=== PATIENT | female | born 1945 | race Caucasian/White ===

== ENCOUNTER 2021-08-15 10:44 | Emergency (ER) | payer MEDICARE, OTHER ==
[2021-08-15 11:00] VITALS: BP 147/61
--- NOTE | 2021-08-15 11:09 | ED Physician Documentation ---
History of Present Illness - Stated complaint Stated Complaint: C+/SORE THROAT - Chief complaint Chief Complaint: General - History obtained from History obtained from: Patient - History of Present Illness Timing: How many days ago (4) - Additonal information Additional information: 76yoF with hx HLD presents with positive COVID19 test and sore throat. Patient s jamee her PCP referred her to the ED for Paxlovid rx. PatientStates she began to develop a sore throat 4 days ago. Denies fevers, shortness of breath, chest pain, body aches, any other complaints at this time. Review of Systems Ten Systems: 10 systems reviewed and negative Nose: denies: Rhinorrhea / runny nose, Congestion Throat: reports: Sore throat. denies: Dental pain / toothache, Oral lesions / sores, Swollen tonsils, Swallowed foreign body Respiratory: denies: Dyspnea, Wheezing PD PAST MEDICAL HISTORY - Past Medical History Cardiovascular: High cholesterol - Present Medications Home Medications: Ambulatory Orders Medication Instructions Recorded Confirmed Lovastatin 20 mg PO DAILY 08/15/21 08/15/21 Nirmatrelvir/Ritonavir [Paxlovid] 1 kit PO BID 5 Days #1 kit 08/15/21 - Allergies Allergies/Adverse Reactions: Allergies Allergy/AdvReac Type Severity Reaction Status Date / Time No Known Drug Allergies Allergy Verified 08/15/21 10:53 - Social History Does the pt smoke?: No Smoking Status: Never smoker PD ED PE NORMAL - General General: Alert and oriented X 3, No acute distress - HEENT HEENT: Atraumatic, PERRL, EOMI, Ears normal - Neck Neck: Supple, no meningeal sign, No bony TTP, No JVD, No bruit, C-Spine cleared by NEXUS criteria - Cardiac Cardiac: RRR, No murmur, No gallop, No rub, Strong equal pulses - Respiratory Respiratory: No respiratory distress, Clear bilaterally - Abdomen Abdomen: Soft, Non tender, Non distended - Back Back: No CVA TTP, No spinal TTP - Derm Derm: Normal color, Warm and dry - Extremities Extremities: No deformity, No edema - Neuro Neuro: Alert and oriented X 3, supervisor line department 2-12 intact, No motor deficit, No sensory deficit - Psych Psych: Normal mood, Normal affect Results - Vitals Vitals: Vital Signs - 24 hr 08/15/21 10:50 Temperature 36.9 C Heart Rate 74 Respiratory 18 Rate Blood Pressure 147/61 H O2 Saturation 95 Oxygen O2 Source Room air PD MEDICAL DECISION MAKING - ED course ED course: Patient presenting at the request of her primary care physician for a Paxlovid rx. Hemodynamically stable. Patient has no known disqualifying factors that would preclude her receiving this prescription. Rx sent to pharmacy. Departure - Departure Disposition: 01 Home, Self Care Clinical Impression: COVID-19 Condition: Good Instructions: ED Viral Syndrome Prescriptions: Nirmatrelvir/Ritonavir [Paxlovid] 1 kit PO BID 5 Days #1 kit
[2021-08-15] MEDS ORDERED: NIRMATRELVIR/RITONAVIR PREPACK PO STA (11:16)
== END 2021-08-15 11:31 | disposition home or self-care (01) ==
LOC: ED 10:44
DX: U07.1 COVID-19 (principal); J02.9 Acute pharyngitis, unspecified
CPT/HCPCS: 99282; J3490